=== PATIENT | male | born 1965 | race Caucasian/White ===

== ENCOUNTER 2017-09-04 12:49 | Emergency (ER) | payer BC ==
[2017-09-04 13:48] VITALS: BP 93/68
--- NOTE | 2017-09-04 14:06 | UC ---
Elbow Pain - HPI Summary HPI Summary: 52 yo male with worsening right elbow pain and swelling x 1 week DM according you his girlfriend he has not been acting himself pale vomited x 1 no his usual jovial self No fever - History of Current Complaint Chief Complaint: UCWounds Stated Complaint: RT ELBOW SKIN COMPLAINT Time Seen by Provider: 09/04/17 13:46 Hx Obtained From: Patient Onset/Duration: Days Severity Initially: Mild Severity Currently: Severe Pain Intensity: 9 Pain Scale Used: 0-10 Numeric Location Of Pain: Is Discrete @ Character: Dull, Aching Aggravating Factor(s): Movement, Other - touch Alleviating Factor(s): Nothing Associated Signs And Symptoms: Positive: Swelling, Redness Body - Head: 1 - red/swollen /oozing - Allergies/Home Medications Allergies/Adverse Reactions: Allergies Allergy/AdvReac Type Severity Reaction Status Date / Time No Known Allergies Allergy Verified 09/04/17 13:37 Home Medications: Home Medications glipiZIDE [Glipizide ER] 1 mg PO DAILY 09/04/17 [History Confirmed 09/04/17] PMH/Surg Hx/FS Hx/Imm Hx Endocrine History: Diabetes Cardiovascular History: Hypertension - Surgical History Surgical History: Yes Surgery Procedure, Year, and Place: APPY - Family History Known Family History: Positive: Hypertension - Social History Alcohol Use: Occasionally Alcohol Amount: Socially Substance Use Type: None Smoking Status (MU): Former Smoker Type: Smokeless Tobacco Amount Used/How Often: 10 tins q3-4 days Review of Systems Constitutional: Fatigue Skin: Negative Eyes: Negative ENT: Negative Respiratory: Negative Cardiovascular: Negative Gastrointestinal: Negative Genitourinary: Negative Motor: Negative Neurovascular: Negative Musculoskeletal: Arthralgia Neurological: Negative Psychological: Negative Is Patient Immunocompromised?: No All Other Systems Reviewed And Are Negative: Yes Physical Exam Triage Information Reviewed: Yes Appearance: Well-Appearing, No Pain Distress, Well-Nourished Vital Signs: Initial Vital Signs Temp 98.2 F 09/04/17 13:39 Pulse 110 09/04/17 13:39 Resp 18 09/04/17 13:39 BP 93/68 09/04/17 13:39 Pulse Ox 97 09/04/17 13:39 Vital Signs Reviewed: Yes Eyes: Positive: Conjunctiva Clear ENT: Negative: Nasal congestion, Nasal drainage, Muffled voice, Hoarse voice Neck: Positive: Supple, Nontender, No Lymphadenopathy Respiratory: Positive: Lungs clear, Normal breath sounds, No respiratory distress, No accessory muscle use Cardiovascular: Positive: RRR, No Murmur, Tachycardia Musculoskeletal: Positive: Other: - see image Neurological: Positive: Alert Psychological Exam: Normal Skin Exam: Other - see image Elbow Pain Course/Dx - Course Course Of Treatment: FS 400/395. discussed with Dr. Batista. to [facility] via POV. declines EMS - Differential Dx/Diagnosis Provider Diagnoses: septic olecranon bursitis Discharge - Sign-Out/Discharge Documenting (check all that apply): Discharge - Discharge Plan Condition: Fair Disposition: TRANS HIGHER LVL OF CARE FAC Referrals: BETTE Richmond [Primary Care Provider] - Additional Instructions: to ER ([facility]) for a higher level of care I spoke to Dr. Batista and he is expecting you - Billing Disposition and Condition Condition: FAIR Disposition: EMTALA
== END 2017-09-04 14:07 | disposition short-term general hospital (02) ==
LOC: UCCORT 12:49
DX: M71.121 Other infective bursitis, right elbow (principal)
CPT/HCPCS: 99212; G0463

== ENCOUNTER 2017-10-04 08:13 | Emergency (ER) | payer BC ==
[2017-10-04 08:34] VITALS: BP 149/67
--- NOTE | 2017-10-04 09:34 | RAD ---
INDICATION: RIGHT arm pain and swelling for 2 days. Bilateral ankle swelling. History of tobacco use. COMPARISON: No relevant prior exams available on the [facility] PACS for comparison. TECHNIQUE: Dual energy PA and routine lateral views of the chest were obtained. REPORT: Clear lungs and pleural spaces. Negative for pneumothorax. The heart, pulmonary vasculature, and mediastinal contours are unremarkable. 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 Mild thoracic spine degenerative spondylosis. IMPRESSION: No evidence for acute intrathoracic disease.
--- NOTE | 2017-10-04 09:36 | RAD ---
Indication: RIGHT ankle pain and swelling for 2 days without preceding injury. Comparison: No relevant prior exams available on the [facility] [place] for [place]. Technique: AP, mortise, and lateral views RIGHT ankle. Report: Diffuse severe soft tissue swelling. Negative for fracture, malalignment, or focal osseous lesions. Negative for periosteal reaction or osteolysis. Mild polyarticular osteophytosis without significant joint space narrowing. Small plantar fascia origin bone spur. IMPRESSION: Diffuse nonspecific soft tissue swelling.
--- NOTE | 2017-10-04 09:38 | UC ---
Lower Extremity/Ankle HPI - HPI Summary HPI Summary: Patient to urgent care today with chief complaint of ankle swelling. Complains of right ankle being swollen more than left and medial right ankle pain. 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 She is unsure if he's had any weight gain. States his blood sugar is generally between 118 and 150 - History of Current Complaint Chief Complaint: UCLowerExtremity Stated Complaint: SWOLLEN R ANKLE Time Seen by Provider: 10/04/17 08:38 Hx Obtained From: Patient Onset/Duration: Gradual Onset, Lasting Days, Still Present, Worse Since - Increased right ankle swelling this morning Severity Initially: Moderate Severity Currently: Moderate Pain Intensity: 8 Pain Scale Used: 0-10 Numeric Aggravating Factor(s): Standing, Ambulation Alleviating Factor(s): Nothing Able to Bear Weight: Yes - Allergies/Home Medications Allergies/Adverse Reactions: Allergies Allergy/AdvReac Type Severity Reaction Status Date / Time No Known Allergies Allergy Verified 09/04/17 13:37 Home Medications: Home Medications Atorvastatin* [Lipitor 40 MG*] 40 mg PO QPM 10/04/17 [History Confirmed 10/04/17 ] Lisinopril 10 mg PO DAILY 10/04/17 [History Confirmed 10/04/17] PMH/Surg Hx/FS Hx/Imm Hx Previously Healthy: No Endocrine History: Diabetes, Dyslipidemia Cardiovascular History: Hypertension Respiratory History: Asthma - Surgical History Surgical History: Yes Surgery Procedure, Year, and Place: APPY - Family History Known Family History: Positive: Hypertension - Social History Occupation: Employed Full-time - [employer] dedicated truck driver Lives: With Family Alcohol Use: Occasionally Alcohol Amount: Socially Substance Use Type: None Smoking Status (MU): Former Smoker Type: Smokeless Tobacco Amount Used/How Often: 10 tins q3-4 days Review of Systems Constitutional: Negative Skin: Negative Eyes: Negative ENT: Negative Respiratory: Negative Cardiovascular: Negative Gastrointestinal: Negative Genitourinary: Negative Motor: Negative Neurovascular: Negative Musculoskeletal: Arthralgia - Pain medial right ankle, Edema - Bilateral ankle swelling right worse than left Neurological: Negative Psychological: Negative Is Patient Immunocompromised?: No All Other Systems Reviewed And Are Negative: Yes Physical Exam Triage Information Reviewed: Yes Appearance: Ill-Appearing - Appears chronically older than stated age, Pain Distress - Mild, Obese Vital Signs: Initial Vital Signs Temp 98.2 F 10/04/17 08:24 Pulse 88 10/04/17 08:24 Resp 20 10/04/17 08:24 BP 149/67 10/04/17 08:24 Pulse Ox 99 10/04/17 08:24 Vital Signs Reviewed: Yes Eye Exam: Normal Eyes: Positive: Conjunctiva Clear ENT Exam: Normal ENT: Positive: Normal ENT inspection, Hearing grossly normal, Uvula midline. Negative: Trismus, Muffled voice, Hoarse voice, Dental tenderness, Sinus tenderness Neck exam: Normal Neck: Positive: Supple, Nontender Respiratory Exam: Other Respiratory: Positive: Chest non-tender, Lungs clear, Normal breath sounds, No respiratory distress, No accessory muscle use, Other: - Appears mildly short of breath with exertion Cardiovascular Exam: Normal Cardiovascular: Positive: RRR, No Murmur, Pulses Normal, Brisk Capillary Refill Musculoskeletal Exam: Other Musculoskeletal: Positive: Strength Intact, ROM Intact, Edema @ - Both ankles right greater than left Neurological Exam: Normal Neurological: Positive: Alert, Muscle Tone Normal Psychological Exam: Normal Skin Exam: Normal Lower Extremity Course/Dx - Course Course Of Treatment: Strategies to reduce peripheral edema discussed with the patient. Including compression stockings or socks, elevating legs, and not crossing his legs. Anti-inflammatories and Ultram Rx for pain. Follow with primary care doctor for elevated blood pressure - Differential Dx/Diagnosis Provider Diagnoses: Elevated blood pressure with diagnosis of hypertension, peripheral edema, right ankle pain Discharge - Sign-Out/Discharge Documenting (check all that apply): Discharge/Admit/Transfer - Discharge Plan Condition: Stable Disposition: HOME Prescriptions: Ibuprofen TAB* [Motrin TAB* 600 MG] 600 mg PO Q6H PRN #40 tab PRN Reason: pain traMADol TAB* [Ultram*] 50 mg PO Q6HR PRN #20 tab MDD 4 PRN Reason: pain Patient Education Materials: Leg Edema (ED), Hypertension (ED), Arthritis (ED) Referrals: Mars Sosa MD [Primary Care Provider] - 1 Week - Billing Disposition and Condition Condition: STABLE Disposition: HOME
== END 2017-10-04 10:20 | disposition home or self-care (01) ==
LOC: UCCORT 08:13
DX: R60.0 Localized edema (principal); R03.0 Elevated blood-pressure reading, without diagnosis of hypertension; M25.571 Pain in right ankle and joints of right foot; Z87.891 Personal history of nicotine dependence
CPT/HCPCS: 71046; 99212; G0463

== ENCOUNTER 2020-05-25 00:09 | Observation (INO) ==
[2020-05-25] MEDS ORDERED: NS 0.9% 1000 ml BAG 1,000 ML IV ONE (00:10)
[2020-05-25 00:27] LABS: ABS Eosinophils 0.1 10^3/ul (0-0.6); ABS Lymphocytes 1.1 10^3/ul (1.0-4.8); ABS Monocytes 0.7 10^3/ul (0-0.8); ABS Neutrophils 10.8 10^3/ul (1.5-7.7); Eosinophil % 0.5 %; Hematocrit 38 % (42-52); Hemoglobin 12.4 g/dL (14.0-18.0); Lymphocyte % 8.5 %; Mean Corpuscular HGB Conc 33 g/dL (31-36); Mean Corpuscular Hemoglobin 26 pg (27-31); Mean Corpuscular Volume 79 fL (80-94); Mean Platelet Volume 8.4 fL (7.4-10.4); Platelet Count 244 10^3/uL (150-450); Red Blood Count 4.77 10^6 /uL (4.18-5.48); Red Cell Distribution Width 16 % (10-15); White Blood Count 12.7 10^3/uL (3.5-10.8)
[2020-05-25 00:46] LABS: Albumin 3.6 g/dL (3.2-5.2); Albumin/Globulin Ratio 1.1 (1-3); BUN/Creatinine Ratio 17.5 (8-20); C Reactive Protein 56.64 mg/L (<8.01); EGFR African American 41.9 (>60); EGFR Non-African American 34.6 (>60); Globulin 3.3 g/dL (2-4); Potassium 5.7 mmol/L (3.5-5.0); Total Protein 6.9 g/dL (6.4-8.9); Troponin I 0.01 ng/mL (<0.03)
[2020-05-25] MEDS: NS 0.9% 1000 ml BAG 2,000 ML IV ONE (02:07)
[2020-05-25] MEDS ORDERED: Ondansetron 4 mg VIAL 2 MG/ML 2 ml VIAL IV PRN (02:19)
[2020-05-25] MEDS ORDERED: Dextrose 50% Syringe 50 ml 25 GM/50 ML SYRINGE IV PUSH PRN (02:19)
[2020-05-25] MEDS ORDERED: cefTRIAXone 1 gm/50 mL NS BAG 1 GM/50 ML BAG IVPB ONE (02:23)
[2020-05-25] MEDS ORDERED: Albuterol HFA INHALER 8 gm MDI INH PRN (02:24)
[2020-05-25] MEDS ORDERED: NS 0.9% 1000 ml BAG 1,000 ML IV SCH (02:30)
[2020-05-25] MEDS: Heparin 5000 UNITS/ML 1 mL VIAL SUBCUT SCH ×2 (05:50→13:26)
[2020-05-25 07:07] LABS: Activated Partial Thrombo Time 30.1 seconds (26.0-38.0); INR 1.25 (0.82-1.09)
[2020-05-25 07:15] LABS: Anion Gap 8 mmol/L (2-11); BUN/Creatinine Ratio 20.3 (8-20); Blood Urea Nitrogen 35 mg/dL (6-24); CO2 Carbon Dioxide 19 mmol/L (22-32); Calcium 7.9 mg/dL (8.6-10.3); Chloride 108 mmol/L (101-111); EGFR African American 49.8 (>60); EGFR Non-African American 41.2 (>60); Glucose 300 mg/dL (70-100); Potassium 4.9 mmol/L (3.5-5.0); Sodium 135 mmol/L (135-145)
[2020-05-25 08:15] LABS: ABS Eosinophils 0.1 10^3/ul (0-0.6); ABS Monocytes 0.5 10^3/ul (0-0.8); ABS Neutrophils 7.8 10^3/ul (1.5-7.7); Eosinophil % 1.3 %; Hematocrit 35 % (42-52); Hemoglobin 11.3 g/dL (14.0-18.0); Lymphocyte % 10.4 %; Mean Corpuscular HGB Conc 32 g/dL (31-36); Mean Corpuscular Hemoglobin 26 pg (27-31); Mean Corpuscular Volume 80 fL (80-94); Mean Platelet Volume 9.1 fL (7.4-10.4); Platelet Count 187 10^3/uL (150-450); Red Blood Count 4.33 10^6 /uL (4.18-5.48); Red Cell Distribution Width 16 % (10-15); White Blood Count 9.4 10^3/uL (3.5-10.8)
[2020-05-25 08:49] LABS: % Iron Saturation 13 % (15-55); Iron 32 ug/dL (50-212); Total Iron Binding Capacity 238 mcg/dL (250-450); Transferrin 170 mg/dL (203-362); Unsaturated Iron Binding < 223 ug/dL
[2020-05-25 09:09] LABS: Ferritin 145.5 ng/mL (24-336)
[2020-05-25 14:39] VITALS: BP 122/59
[2020-05-26] MEDS ORDERED: Mometasone/Formoter 200/5 MDI INH SCH (02:24)
== END 2020-05-25 16:50 | disposition home or self-care (01) ==
LOC: MED 00:09 → ED 00:09 → MED 05:16
PROVIDERS: ADMIT Internal Medicine; ATTEND Internal Medicine